=== PATIENT | male | born 1960 | race Caucasian/White ===

== ENCOUNTER 2018-02-14 10:23 | Day surgery (SDC) | payer OTHER ==
[2018-02-14] MEDS: CEFAZOLIN 2 GM/50 ML (PMX) 50 ML IVPB (11:30)
[2018-02-14] MEDS: LACTATED RINGER'S 1,000 ML IV* (11:30)
[2018-02-14] MEDS ORDERED: MIDAZOLAM 1 MG/ML 2 ML INJ (13:02)
[2018-02-14] MEDS ORDERED: ROPIVACAINE 0.5 % 30 ML VIAL (14:27)
[2018-02-14] MEDS ORDERED: ONDANSETRON 4 MG INJ (14:44)
[2018-02-14] MEDS ORDERED: PROPOFOL 20 ML (14:44)
[2018-02-14] MEDS ORDERED: LIDOCAINE 2% (SDV) 5 ML INJ (14:44)
[2018-02-14] MEDS ORDERED: CEFAZOLIN 1 GM INJ (14:44)
[2018-02-14] MEDS ORDERED: NALOXONE (0.4 MG/ML) INJ IV (15:00)
[2018-02-14] MEDS ORDERED: MEPERIDINE 25 MG INJ IV (15:00)
[2018-02-14] MEDS ORDERED: HYDROmorphONE 1 MG/5 ML IV SYRINGE IV (15:00)
[2018-02-14] MEDS ORDERED: DIPHENHYDRAMINE 50 MG INJ IV (15:00)
[2018-02-14] MEDS ORDERED: ONDANSETRON 4 MG INJ IV (15:00)
[2018-02-14] MEDS: HYDROmorphONE 1 MG/5 ML IV SYRINGE IV ×2 (15:17→15:31)
[2018-02-14] MEDS: FENTAnyl 50 MCG/ML VIAL IV (15:48)
== END 2018-02-14 17:00 | disposition home or self-care (01) ==
LOC: SDS 10:23
DX: S62.610D Displaced fracture of proximal phalanx of right index finger, subsequent encounter for fracture with routine healing (principal); S62.612D Displaced fracture of proximal phalanx of right middle finger, subsequent encounter for fracture with routine healing; X58.XXXD Exposure to other specified factors, subsequent encounter
CPT/HCPCS: 26746; 73130-RT